=== PATIENT | female | born 1995 | race Caucasian/White ===

== ENCOUNTER 2017-05-11 17:12 | Outpatient (CLI) | payer OTHER | END 2017-05-11 17:13 | disposition home or self-care (01) | LOC: LAB 17:12 | PROVIDERS: ATTEND Specialist | DX: O36.0130 Maternal care for anti-D [Rh] antibodies, third trimester, not applicable or unspecified (principal); Z3A.29 29 weeks gestation of pregnancy | CPT/HCPCS: 86850; 86900; 86901; J2790 ==

== ENCOUNTER 2017-05-12 16:58 | Outpatient (CLI) | payer OTHER | END 2017-05-12 18:00 | disposition home or self-care (01) | LOC: LAB 16:58 → TRG 16:58 | PROVIDERS: ATTEND Obstetrics & Gynecology | DX: O36.0139 Maternal care for anti-D [Rh] antibodies, third trimester, other fetus (principal); Z3A.29 29 weeks gestation of pregnancy | CPT/HCPCS: 96372 ==